=== PATIENT | female | born 1955 | race Caucasian/White ===

== ENCOUNTER → 2023-08-29 10:23 | Outpatient (CLI) | payer MEDICARE, SELFPAY ==
[2023-08-29 11:36] LABS: Alanine Aminotransferase 14 IU/L (<35); Albumin 3.8 g/dL (3.5-5.0); Albumin Globulin Ratio 1.3 (1.0-2.8); Alkaline Phosphatase 68 U/L (38-126); Aspartate Aminotransferase 21 IU/L (14-36); BUN Creatinine Ratio 24.7 (6-22); Bilirubin Total 0.5 mg/dL (0.2-1.3); Blood Urea Nitrogen 19 mg/dL (7-17); Calcium 9.3 mg/dL (8.4-10.2); Carbon Dioxide 27 mmol/L (22-32); Chloride 108 mmol/L (98-107); Cholesterol 205 mg/dL (140-199); Estimated Glomerular Filt Rate > 60 mL/min (>60); Glucose 96 mg/dL (80-110); HDL Cholesterol 64 mg/dL (40-60); HEMOLYSIS < 15 (0-50); LDL Cholesterol Calculated 124 mg/dL (<100); Potassium 5.2 mmol/L (3.4-5.1); Sodium 139 mmol/L (137-145); Total Protein 6.8 g/dL (6.3-8.2); Triglycerides 84 mg/dL (35-150)
[2023-08-29 12:04] LABS: TSH w/ Reflex to FT4 1.87 uIU/mL (0.47-4.68)
[2023-08-30 19:37] LABS: Fecal Immunochemical Test Negative (Negative)
== END ==
PROVIDERS: PCP Family Medicine; Referring Provider Family Medicine; Visit Provider Family Medicine
DX: E03.9 Hypothyroidism, unspecified (principal); Z12.11 Encounter for screening for malignant neoplasm of colon; Z00.00 Encounter for general adult medical examination without abnormal findings; K21.9 Gastro-esophageal reflux disease without esophagitis
CPT/HCPCS: 36415; 80053; 80061; 82274; 84443

== ENCOUNTER → 2023-11-24 10:13 | Outpatient (CLI) | payer MEDICARE, SELFPAY ==
--- NOTE | 2023-11-24 10:14 | DI.RAD.S_ITS ---
PROCEDURE: XR DEXA AXIAL SKELETON INDICATIONS: hx of osteopenia, last DEXA 2018 COMPARISON: None. FINDINGS: Lumbar Spine: Bone mineral density 0.957 g/cm2, T score -0.8. Left Forearm: Bone mineral density 0.704 g/cm2, T score 0.2. (T score greater or equal to -1.0 to: NORMAL) (T score from -1.1 to -2.4: OSTEOPENIA) (T score less than or equal to -2.5: OSTEOPOROSIS) IMPRESSION: Bone mineral density is within normal limits. Follow-up guidelines as follows: Osteoporosis: Consider a repeat DEXA and Vertebral Fracture Assessment (VFA) exam in 2 years or sooner if medically necessary, to reassess this patient's status. Osteopenia: Consider a repeat DEXA in 2-3 years to reassess this patient's status, or if there is a new clinical indication. Normal: Consider a repeat DEXA in 5 years or sooner, or if there is a new clinical indication. All treatment decisions require clinical judgment and consideration of individual patient factors, including patient preferences, comorbidities, previous drug use, risk factors not captured in the FRAX model (e.g., frailty, falls, vitamin D deficiency, increased bone turnover, interval significant decline in bone density ) and possible under- or over-estimation of fracture risk by FRAX. In addition, the NOF Guide recommends that FDA-approved medical therapies be considered in postmenopausal women and men age >= 50 years with a: * Hip or vertebral (clinical or morphometric) fracture * T-score of <=-2.5 at the spine or hip * Ten-year fracture probability by FRAX of >= 3% for hip fracture or >=20% for major osteoporotic fracture. People with diagnosed cases of osteoporosis or at high risk for fracture should have regular bone mineral density tests. For patients eligible for Medicare, routine testing is allowed once every 2 years. The testing frequency can be increased to one year for patients who have rapidly progressing disease, those who are receiving or discontinuing medical therapy to restore bone mass, or have additional risk factors. Dictated by: Prasanna Menjivar M.D. on 11/24/2023 at 22:26 Approved by: Prasanna Menjivar M.D. on 11/24/2023 at 22:28
== END ==
PROVIDERS: PCP Family Medicine; Referring Provider Family Medicine; Visit Provider Family Medicine
DX: M85.89 Other specified disorders of bone density and structure, multiple sites (principal)
CPT/HCPCS: 77080

== ENCOUNTER → 2024-02-14 10:04 | Outpatient (CLI) | payer MEDICARE, SELFPAY ==
--- NOTE | 2024-02-14 10:05 | DI.MG.S_ITS ---
BILATERAL DIGITAL SCREENING MAMMOGRAM 3D/2D WITH CAD: 02/14/2024 CLINICAL: Routine screening. Family history of breast cancer. Comparison is made to exams dated: 04/13/2022 mammogram, 10/27/2020 mammogram, and 10/04/2019 mammogram - Outside facility. There are scattered areas of fibroglandular density (category b / 25%-50% glandular tissue). Current study was also evaluated with a Computer Aided Detection (CAD) system. No significant masses, calcifications, or other findings are seen in either breast. There has been no significant interval change. IMPRESSION: NEGATIVE There is no mammographic evidence of malignancy. A 1 year screening mammogram is recommended. Based on the Tyrer Cuzick model (a risk assessment model) the patient's lifetime risk is 13.1% and her 10 year risk is 7.8%. According to the ACR, ACS, and NCCN guidelines, an annual breast MRI exam along with mammogram is recommended if the patient's lifetime risk is 20% or greater. This exam was interpreted at Station ID: [id number]. NOTE: For mammograms, a report in lay terms will be sent to the patient. Approximately 15% of breast malignancies will not be visualized mammographically. In the management of a palpable breast mass, a negative mammogram must not discourage biopsy of a clinically suspicious lesion. Electronically Signed By: Elaine amanda/jonathan:02/14/2024 13:03:28 letter sent: Normal Exam ACR BI-RADS Category 1: Negative [id number]
[2024-02-14 14:18] LABS: BUN Creatinine Ratio 16.9 (6-22); Blood Urea Nitrogen 14 mg/dL (7-17); Calcium 9.5 mg/dL (8.4-10.2); Carbon Dioxide 25 mmol/L (22-32); Chloride 105 mmol/L (98-107); Cholesterol 257 mg/dL (140-199); Estimated Glomerular Filt Rate > 60 mL/min (>60); Glucose 91 mg/dL (80-110); HDL Cholesterol 91 mg/dL (40-60); HEMOLYSIS < 15 (0-50); LDL Cholesterol Calculated 148 mg/dL (<100); Potassium 4.5 mmol/L (3.4-5.1); Sodium 136 mmol/L (137-145); Triglycerides 88 mg/dL (35-150)
== END ==
PROVIDERS: PCP Family Medicine; Referring Provider Family Medicine; Visit Provider Family Medicine
DX: Z12.31 Encounter for screening mammogram for malignant neoplasm of breast (principal); E03.9 Hypothyroidism, unspecified; Z80.3 Family history of malignant neoplasm of breast; K21.9 Gastro-esophageal reflux disease without esophagitis; M85.80 Other specified disorders of bone density and structure, unspecified site; E78.00 Pure hypercholesterolemia, unspecified; E87.5 Hyperkalemia; R79.9 Abnormal finding of blood chemistry, unspecified
CPT/HCPCS: 36415; 77063; 77067; 80048; 80061

== ENCOUNTER 2024-05-02 09:51 | Day surgery (SDC) | payer MEDICARE, SELFPAY ==
[2024-05-02 10:56] VITALS: BP 140/80; PULSE 81; RESP 18; TEMP 36.2; O2SAT 94
--- NOTE | 2024-05-02 11:02 | P.HP_ITS ---
History of Present Illness History of Present Illness Date Patient Seen: 05/02/24 Time Patient Seen: 11:02 Chief complaint: Screening Colonoscopy Narrative: Dominic is a 69-year-old woman here for a colonoscopy. Her last one was 4 or 5 years ago and polyps were removed. Her father had colon cancer and 2 surgeries in his 80s. [facility], [facility] Medical History (Updated 05/02/24 @ 11:03 by Hira Roper MD) Osteoarthritis (~2006) Tinnitus (~1994) Skin cancer (~2012) Hypercholesterolemia Osteopenia Depression (~2003) GERD (gastroesophageal reflux disease) (~2018) Hypothyroidism (~1989) Surgical History (Updated 09/13/23 @ 19:09 by Vivi Kaur) Anesthesia History of left hip replacement (~2017) History of right hip replacement (~2006) History of removal of ovarian cyst (~1988) Social History Smoking Status: Never smoker alcohol intake: current Meds Home Medications and Allergies Home Medications Medication Instructions Recorded Confirmed Type escitalopram oxalate 20 mg tablet 20 mg PO DAILY 08/16/23 05/02/24 History levothyroxine 125 mcg tablet 125 mcg PO DAILY 08/16/23 05/02/24 History pantoprazole 40 mg tablet,delayed 40 mg PO DAILY #90 tabs 12/08/23 05/02/24 Rx release hydrocortisone acetate 25 mg 25 mg RI DAILY #12 ea 02/14/24 02/14/24 Rx rectal suppository (Anusol-HC) ketoconazole 2 % topical cream 1 applic topical DAILY #15 grams 02/14/24 05/02/24 Rx simvastatin 20 mg tablet 20 mg PO DAILY #90 tabs 03/06/24 05/02/24 Rx escitalopram oxalate 10 mg tablet 10 mg PO DAILY #90 tabs 04/19/24 05/02/24 Rx Allergies Allergy/AdvReac Type Severity Reaction Status Date / Time No Known Allergies Allergy Verified 05/02/24 10:50 Exam Vital Signs (past 8 hours): - 05/02/24 10:56 Temperature 97.2 F L Pulse Rate 81 Respiratory Rate 18 Blood Pressure 140/80 Pulse Oximetry 94 Oxygen Delivery Method Room Air Oxygen Delivery Method Room Air Const General: No acute distress Assessment & Plan Assessment and plan (1) Personal history of colon polyps, unspecified: Status: Acute Plan Colonoscopy Time-Based Coding :: [TOTAL MINUTES] spent with patient and on the chart (including review of chart, obtaining history, exam, reviewing outside data, placing orders, documenting exam and treatment plan, and counseling patient) on [DATE].
[2024-05-02 11:54] VITALS: BP 106/74; PULSE 114; RESP 16; TEMP 36.6; O2SAT 95
[2024-05-02 11:59] VITALS: BP 110/68; PULSE 112; RESP 18; O2SAT 93
--- NOTE | 2024-05-02 12:01 | PM.OP.COLON ---
Operative Date/Time/Diagnoses Date of procedure: 05/02/24 Time of procedure: 12:01 Pre-op diagnosis: Colon cancer screening Post-op diagnosis: same Procedure & Clinicians Study performed: Colonoscopy Same procedure as scheduled: Yes Surgeon: Hira Roper Procedure Notes Procedure in detail: Surgeon: Hira Roper MD Anesthesia: Yvonne Jesus CRNA Procedure: The patient was brought to the endoscopy suite, placed in left lateral decubitus position. The patient was connected to monitoring devices. A time-out was performed. Sedation was administered. Once the patient was adequately sedated, a digital rectal exam was performed and was normal. The scope was then inserted and advanced to the cecum where the appendiceal orifice was identified and photographed. The scope was then slowly withdrawn over greater than 6 minutes. The mucosa was thoroughly inspected. No abnormalities were found. The scope was retroflexed in the rectum. The scope was straightened and removed. The patient was awakened and brought to recovery. Scope withdrawal time: 6 minutes Sedation time: 11 minutes EBL: 0 Findings: Normal colon Post-procedure Recommendations: Colonoscopy in 10 years Disposition: PACU
[2024-05-02 12:05] VITALS: BP 109/79; PULSE 116; RESP 16; TEMP 36.7; O2SAT 93
[2024-05-02 12:10] VITALS: BP 115/87; PULSE 102; RESP 18; O2SAT 94
[2024-05-02 12:25] VITALS: BP 138/74; PULSE 89; O2SAT 97
== END 2024-05-02 12:25 | disposition home or self-care (01) ==
PROVIDERS: PCP Family Medicine; Referring Provider Surgery; Visit Provider Surgery
PROC: 0DJD8ZZ Inspection of Lower Intestinal Tract, Via Natural or Artificial Opening Endoscopic (ICD-10-PCS; CPT 45378; principal; 2024-05-02 11:00)
DX: Z12.11 Encounter for screening for malignant neoplasm of colon (principal); Z86.0100 Personal history of colon polyps, unspecified; Z80.0 Family history of malignant neoplasm of digestive organs
CPT/HCPCS: G0105; J2405; J2704

== ENCOUNTER → 2024-09-27 15:31 | Outpatient (CLI) | payer MEDICARE, SELFPAY ==
[2024-09-27 17:29] LABS: Thyroid Stimulating Hormone 1.23 uIU/mL (0.47-4.68)
== END ==
PROVIDERS: PCP Family Medicine; Referring Provider Family Medicine; Visit Provider Family Medicine
DX: E03.9 Hypothyroidism, unspecified (principal)
CPT/HCPCS: 36415; 84443

== ENCOUNTER → 2025-02-20 09:51 | Outpatient (CLI) | payer MEDICARE, SELFPAY ==
[2025-02-20 10:51] LABS: Add Manual Diff / Slide Review NO; Hematocrit 43.5 % (36-46); Hemoglobin 14.8 g/dL (12.0-16.0); Lymphocytes Absolute Auto 1700 /uL (1100-4500); Mean Corpuscular HGB Conc 33.9 % (30-36); Mean Corpuscular Hemoglobin 31.0 PG (26-34); Mean Corpuscular Volume 91.6 fL (80-100); Platelet Count 404 X10^3/uL (150-400)
[2025-02-20 11:13] LABS: Alanine Aminotransferase 15 IU/L (<35); Albumin 4.2 g/dL (3.5-5.0); Albumin Globulin Ratio 1.6 (1.0-2.8); Alkaline Phosphatase 74 U/L (38-126); Blood Urea Nitrogen 13 mg/dL (7-17); Calcium 9.2 mg/dL (8.4-10.2); Carbon Dioxide 25 mmol/L (22-32); Chloride 104 mmol/L (98-107); Cholesterol 208 mg/dL (140-199); Estimated Glomerular Filt Rate > 60 mL/min (>60); Globulin 2.7 g/dL (1.7-4.1); Glucose 102 mg/dL (70-99); HDL Cholesterol 93 mg/dL (40-60); HEMOLYSIS < 15 (0-50); Potassium 4.3 mmol/L (3.4-5.1); Sodium 137 mmol/L (137-145); Total Protein 6.9 g/dL (6.3-8.2); Triglycerides 98 mg/dL (35-150)
[2025-02-20 11:39] LABS: Thyroid Stimulating Hormone 0.693 uIU/mL (0.47-4.68)
== END ==
PROVIDERS: PCP Family Medicine; Referring Provider Family Medicine; Visit Provider Family Medicine
DX: Z00.00 Encounter for general adult medical examination without abnormal findings (principal); E78.00 Pure hypercholesterolemia, unspecified; F32.89 Other specified depressive episodes; E03.9 Hypothyroidism, unspecified
CPT/HCPCS: 36415; 80053; 80061; 84443; 85025

== ENCOUNTER → 2025-03-12 09:20 | Outpatient (CLI) | payer MEDICARE, SELFPAY ==
--- NOTE | 2025-03-12 09:20 | DI.MG.S_ITS ---
MM screening mammo BI: 03/12/2025. BI-RADS: 1 CLINICAL: 70-year old female for bilateral screening mammogram. Tyrer-Cuzick lifetime risk of 13.1%. Current reported family history of breast cancer: mother. The patient had a prior right breast biopsy. PRIOR EXAMS: 02/14/2024, 04/13/2022, 10/27/2020, 10/04/2019. MAMMOGRAPHY TECHNIQUE: 2D and 3D (tomosynthesis) digital mammographic views obtained, with additional images as needed for full coverage. Current study was also evaluated with a Computer Aided Detection (CAD) system. DENSITY B. There are scattered areas of fibroglandular density. MAMMOGRAPHY FINDINGS Bilateral: No suspicious mass, asymmetry, microcalcification, or other abnormality seen. IMPRESSION: * No evidence of malignancy. RECOMMENDATIONS Bilateral * Annual screening mammography. OVERALL ASSESSMENT CATEGORY BI-RADS-1: Negative. The [employer] recommends annual screening mammography beginning at age 40 for women with average risk of breast cancer. ELECTRONICALLY SIGNED: Irma Church M.D. on 03/13/2025 at 08:37:20 AM PT Interpreting Station ID: [id number]
== END ==
LOC: MAMMO 09:20
PROVIDERS: PCP Family Medicine; Referring Provider Family Medicine; Visit Provider Family Medicine
DX: Z12.31 Encounter for screening mammogram for malignant neoplasm of breast (principal); Z80.3 Family history of malignant neoplasm of breast
CPT/HCPCS: 77063; 77067